=== PATIENT | female | born 1950 | race Caucasian/White ===

== ENCOUNTER 2016-11-29 10:06 | Emergency (ER) | payer OTHER ==
[~2016-11-29] VITALS: Ht 157.5 cm; Wt 85.3 kg
[2016-11-29 10:50] VITALS: BP 138/70
== END 2016-11-29 10:50 | disposition home or self-care (01) ==
LOC: ED 10:06
DX: S00.81XA Abrasion of other part of head, initial encounter (principal); S80.212A Abrasion, left knee, initial encounter; S80.211A Abrasion, right knee, initial encounter; I10 Essential (primary) hypertension; E78.00 Pure hypercholesterolemia, unspecified; E11.9 Type 2 diabetes mellitus without complications; E66.9 Obesity, unspecified; E78.5 Hyperlipidemia, unspecified; W01.0XXA Fall on same level from slipping, tripping and stumbling without subsequent striking against object, initial encounter; Y93.01 Activity, walking, marching and hiking; Y99.8 Other external cause status; Y92.480 Sidewalk as the place of occurrence of the external cause